=== PATIENT | female | born 1945 | race Two or more races ===

== ENCOUNTER 2024-08-13 05:45 | Day surgery (SDC) | payer OTHER ==
[~2024-08-13 05:45] MED LIST: IRBESARTAN150 MG PO; LEVOTHYROXINE25 MCG PO; PEPCID40 MG PO; PLAVIX75 MG PO; PROTONIX40 MG PO; SIMVASTATIN5 MG PO; TOPROL XL50 M1 PO
[2024-08-13] MEDS ORDERED: CEFAZOLIN SODIUM 1,000 MG VIAL ONE ×2 (06:40→07:21)
[2024-08-13] MEDS ORDERED: GENTAMICIN SULFATE 40 MG/ML VIAL ONE (06:40)
[2024-08-13] MEDS ORDERED: LIDOCAINE HCL 1%/EPINEPHRINE 20ML VIAL IJ ONE (06:40)
[2024-08-13] MEDS ORDERED: CHLORHEXIDINE GLUCONATE 120 ML BOTTLE TOP ONE (08:28)
[2024-08-13] MEDS ORDERED: TRAM1TAB98 PO (11:25)
== END 2024-08-13 13:25 | disposition home or self-care (01) ==
LOC: CIR.AMB 05:45
PROVIDERS: ATTEND Obstetrics & Gynecology Gynecology
DX: N81.5 Vaginal enterocele (principal); N81.11 Cystocele, midline; N81.6 Rectocele; N81.82 Incompetence or weakening of pubocervical tissue; N81.83 Incompetence or weakening of rectovaginal tissue; I10 Essential (primary) hypertension; E03.8 Other specified hypothyroidism; E78.00 Pure hypercholesterolemia, unspecified

== ENCOUNTER 2024-12-23 08:50 | Outpatient (CLI) | payer OTHER ==
[~2024-12-23 08:50] MED LIST changes: +TRAM1TAB98 PO
== END 2024-12-23 08:51 | disposition home or self-care (01) ==
LOC: SONOGRAMA 08:50
PROVIDERS: ATTEND Pathology Anatomic Pathology
DX: E04.2 Nontoxic multinodular goiter (principal)